=== PATIENT | male | born 1955 | race Caucasian/White ===

== ENCOUNTER 2017-07-21 11:12 | Emergency (ER) | payer OTHER ==
[~2017-07-21] VITALS: Ht 180.3 cm; Wt 86.4 kg
[2017-07-21 11:29] VITALS: BP 133/93; PULSE 59; RESP 16; O2SAT 98
--- NOTE | 2017-07-21 12:11 | ED.REPORT ---
HPI-Headache Date of Service Jul 21, 2017 ED Provider: Davey Staton PA-C Jean-Claude is an otherwise healthy 62-year-old male with history of headaches who presents the emergency department with a chief complaint of a headache. Patient reports being awoken at 0300 by global headache. Describes the pain as throbbing. Patient reports this is not an unusual presentation for him. Associated with presyncopal dizziness "I going to pass out if this continues," nausea. Denies chest pain, shortness of breath, diaphoresis, vomiting, abdominal pain, weakness or numbness in the limb, difficulty speaking, vision changes. Patient reports taking 5 mg Tylenol when he woke up this morning. Denies other medications since then. Seen at the urgent care and referred to the emergency department. Nursing Notes Stated Complaint: HEADACHE,DIZZINESS Chief Complaint: General Complaint Nursing Notes Reviewed: Yes Allergies: Coded Allergies: No Known Allergies (Unverified , 07/21/17) General Time Seen by MD: 11:38 Chief Complaint Headache Sudden in Onset?: Yes Risk-Headache NIH Stroke Scale Level of Consciousness: Alert and responsive (0) Ask Month & Age: Both questions right (0) Open/Close Eyes/Hand Textbook Associate: Performs both tasks (0) Horizontal EO Movements: None (0) Visual Angel: No visual loss (0) Facial Palsy: Normal symmetry (0) Right Arm Motor Drift (10s): No drift 10 sec (0) Left Arm Motor Drift (10s): No drift 10 sec (0) Right Leg Motor Drift (5s): No drift 5 sec (0) Left Leg Motor Drift (5s): No drift 5 sec (0) Limb Ataxia FNF/Heel-Harris: No ataxia (0) Sensation (Arms/Legs/Face): No sensory loss (0) Language Aphasia: No aphasia, normal (0) Dysarthria: No dysarthria, normal (0) Extinction/Inattention: No exctinct/inattent (0) NIHSS Score: 0 Time NIHSS Performed: 11:57 Date NIHSS Performed: Jul 21, 2017 Past Medical History Past Medical History Headaches Hypertension Review of Systems Review of Systems Note: Negative unless stated otherwise in history of present illness Physical Exam General: Well appearing, well developed, well nourished, no acute distress. Head: Atraumatic, normocephalic. Eyes: No scleral icterus or injection. No discharge. Vision grossly intact. ENT: Voice clear, hearing grossly intact. Respiratory: Regular rate and rhythm. Breath sounds present, clear to auscultation and equal bilaterally. No respiratory distress. No increased work of breathing, speaks in complete sentences. Cardiovascular: Regular rate and rhythm, without murmur, gallop or rub. No pedal edema. Gastrointestinal: Abdomen flat and non-tender without guarding or rebound. Bowel sounds normoactive. Skin: Warm and dry. Neurological: Normal gait, toe walk, heel walk, Romberg. Normal finger-nose, heel-harris, rapid hand. Negative pronator drift. Sensation and strength grossly intact in extremities. NIH stroke scale is 0 as documented above. Cranial nerves: Vision grossly intact, PERRL, EOMI. Facial motion symmetrical, sensation to light touch over forehead, maxilla and mandible present and equal B /L. Voice clear and fluent, no drooling/pooling of saliva, uvula rises midline. Psychological: Alert and oriented. Speech appropriate, linear and logical. Behavior appropriate. Initial Vital Signs Vital Signs (First) Date Time Temp Pulse Resp B/P Pulse Ox O2 Delivery O2 Flow Rate FiO2 07/21/17 11:29 36.5 59 16 133/93 98 Room Air Interpretation & Diagnostics ECG Interpretation ECG Interpretation: EKG provided from urgent care indicates a normal sinus rhythm, regular with a rate of 57. No signs of ischemic changes Time: 10:38 Interpreted by: ED physician (Dr. Montes De Oca) CT Head Interpretation PROCEDURE: CT BRAIN WITHOUT CONTRAST ([id number]) INDICATIONS: headache IMPRESSION: Negative head CT. No acute intracranial hemorrhage. Interpretation / Wet Read by: Interpret - Radiologist Re-Eval/Medical Decision Med Decision/Clinical Course Jean-Claude is an otherwise healthy 62-year-old male with a history of headaches presents to emergency department for a headache associated with dizziness and nausea. He awoke from sleep at 3:00 with a familiar headache that which became more severe, associated with a sense of presyncope, nausea point the patient became alarmed and presented to urgent care. He is referred on to emergency. At presentation he reports dizziness is significantly improved and headache is receding. At this time he rates it 2/10. Physical examination is benign with a normal neurological examination and NIH stroke scale of 0. Vital signs are normal. Patient appears quite well. Out of consideration for the unusual severity of the patient's headache, a CT scan is ordered after consultation with both the patient and Dr. Montes De Oca. This returns normal. Offered lumbar puncture which is declined. I feel this is reasonable as I find intracranial bleeding at a relatively unlikely cause of his symptoms. I similarly find TIA/CVA, carotid dissection, mass effect, pseudotumor cerebri to be unlikely. I believe he is stable and safe to go home. Patient feels well and wishes to be discharged. Advised regarding [id number] analgesia. Advised regarding primary care follow-up, provided emergency return precautions. Patient verbalized understanding of, and consent to, the plan. Discharge & Departure Impression: Primary Impression: Headache Headache type: unspecified Headache chronicity pattern: unspecified pattern Intractability: not intractable Qualified Code: R51 - Headache Disposition: Home Discharge Condition All VS Reviewed: Yes Condition: Stable Patient Instructions: Acute Headache (ED) Additional Instructions: Evaluation for a headache with dizziness in the emergency department include interview, physical exam patient and a CT scan of the head all of which are reassuring that this is unlikely to be caused by an immediately dangerous conditions such as a stroke, mass or bleeding in your brain. CT alone does not completely rule out bleeding in your brain. We have discussed performing a lumbar puncture, which you have declined, preferring to be discharged to home and monitor your symptoms. I do not believe this is unreasonable. The pain is best treated with 500 mg of naproxen (Aleve) every 12 hours, or 1000 mg of acetaminophen (Tylenol) every 6 hours. These drugs can be taken at the same time for more severe pain. Follow-up with your primary care provider in a day or 2 to discuss this episode and consider treatment options. Return to emergency department for new or worsening symptoms including sudden or severe changes in her headache, loss of consciousness, continuing dizziness, neurologic symptoms. Referrals: Teetee Moulton MD EDSupervising Provider for APC: Jean-Claude Howard DO copies to: Teetee Moulton MD, Seth PA-C Jul 21, 2017 12:10
--- NOTE | 2017-07-21 12:58 | DRSVH ---
PROCEDURE: CT BRAIN WITHOUT CONTRAST ([id number]) INDICATIONS: headache TECHNIQUE: Noncontrast 4.5 mm thick angled axial sections acquired from the foramen magnum to the vertex, with c oronal reformats. COMPARISON: None. FINDINGS: Image quality: Excellent. CSF spaces: Basal cisterns are patent. No extra-axial fluid collections. Ventricles are normal in size and shape. Brain: No midline shift. No intracranial masses or hemorrhage. Trevizo-white matter interface is norm al. Skull and face: Calvarium and visualized facial bones are intact, without suspicious lesions. Sinuses: Visualized sinuses and mastoids are clear. IMPRESSION: Negative head CT. No acute intracranial hemorrhage. Dictated by: Marcelo Morton M.D. on 07/21/2017 at 11:55 Approved by: Marcelo Morton M.D. on 07/21/2017 at 11:56
== END 2017-07-21 13:36 | disposition home or self-care (01) ==
LOC: SED 11:12
DX: R51 Headache (principal); R42 Dizziness and giddiness; R11.0 Nausea; I10 Essential (primary) hypertension
CPT/HCPCS: 70450; 96372; 99284; J1885